=== PATIENT | female | born 1990 | race Caucasian/White ===

== ENCOUNTER 2017-10-14 17:22 | Emergency (ER) | payer BC ==
[~2017-10-14] VITALS: Ht 162.6 cm; Wt 59.0 kg
[~2017-10-14 17:22] MED LIST: BOOSTRIX IM; FLUZONE SPLT1 M1 IM; TET/DIP TOX1 ML IM; VITA-NATAL PO
[2017-10-14] MEDS ORDERED: AUGMENTIN875TAB PO (17:31)
[2017-10-14] MEDS ORDERED: FLONASE AL50 MCG/ACT (18:01)
[2017-10-14 18:20] LABS: HEMATOCRIT 37.2 % (37.0-47.0); HEMOGLOBIN 13.1 g/dl (12.0-16.0); IMMATURE GRANULOCYTES 0.1 % (0.0-1.0); MEAN CELL VOLUME 89.6 fL CALC (80.0-100.0); MEAN CORPUSCULAR HGB 31.6 pG CALC (26.0-32.0); MEAN CORPUSCULAR HGB CONC 35.2 g/L CALC (32.0-36.0); NEUT# 5.01 thou/uL (2.00-7.15); RED BLOOD COUNT 4.15 mill/uL (4.20-5.60); RED CELL DISTRI WIDTH 11.4 % (11.5-15.5)
[2017-10-14 18:24] LABS: URINE BILIRUBIN - DIPSTICK NEGATIVE (NEGATIVE); URINE BLOOD DIPSTICK NEGATIVE (NEGATIVE); URINE COLOR YELLOW; URINE GLUCOSE - DIPSTICK NEGATIVE (NEGATIVE); URINE KETONE 15 mg/dL (NEGATIVE); URINE LEUK ESTERASE NEGATIVE (NEGATIVE); URINE NITRITE - DIPSTICK NEGATIVE (Negative); URINE PH 6.5 (4.5-8.0); URINE PROTEIN - DIPSTICK NEGATIVE (NEG-TRACE); URINE SPECIFIC GRAVITY <=1.005; URINE UROBILINOGEN - DIPSTICK 0.2 E.U./dL (0.2)
[2017-10-14 18:32] LABS: ALBUMIN 4.7 g/dL (3.2-5.0); ALKALINE PHOSPHATASE 112 u/l (38-126); ANION GAP 18 (6-22 (CALC)); BILIRUBIN, TOTAL 0.6 mg/dL (0.0-1.4); BUN 7 mg/dL (7-17); BUN/CREATININE RATIO 15 (12-20 (CALC)); CALCIUM 9.8 mg/dL (8.4-10.2); CARBON DIOXIDE 22 mmol/l (22-30); CHLORIDE 104 mmol/l (95-108); CREATININE 0.5 mg/dL (0.5-1.0); GFR > 60 ML/MIN (>=60 (CALC)); GFR FOR AFR.AMER. > 60 ML/MIN (>=60 (CALC)); GLUCOSE 93 mg/dL (65-105); SGOT/AST 45 u/l (14-36); SGPT/ALT 64 u/l (9-52); SODIUM 139 mmol/l (137-146); TOTAL PROTEIN 7.7 g/dL (6.3-8.2)
[2017-10-14 19:11] LABS: URINE CLARITY CLEAR
[2017-10-14 19:25] VITALS: BP 119/77
== END 2017-10-14 19:25 | disposition home or self-care (01) | DRG 781 ==
LOC: ED 17:22
PROVIDERS: Emergency Medicine
DX: O26.891 Other specified pregnancy related conditions, first trimester (principal); H72.91 Unspecified perforation of tympanic membrane, right ear; J32.0 Chronic maxillary sinusitis; Z3A.01 Less than 8 weeks gestation of pregnancy; R51 Headache

== ENCOUNTER → 2019-01-21 | Outpatient (REF) ==
[~2019-01-21] MED LIST changes: +AUGMENTIN875TAB PO; +FLONASE AL50 MCG/ACT
== END | disposition home or self-care (01) | DRG 951 ==
LOC: LAB 07:31
PROVIDERS: ATTEND Obstetrics & Gynecology
DX: Z34.92 Encounter for supervision of normal pregnancy, unspecified, second trimester (principal)

== ENCOUNTER 2019-05-11 15:46 | Emergency (ER) | payer BC ==
[~2019-05-11] VITALS: Ht 162.6 cm; Wt 63.2 kg
[2019-05-11 17:14] LABS: URINE BILIRUBIN - DIPSTICK NEGATIVE (NEGATIVE); URINE BLOOD DIPSTICK NEGATIVE (NEGATIVE); URINE COLOR YELLOW; URINE GLUCOSE - DIPSTICK NEGATIVE (NEGATIVE); URINE KETONE NEGATIVE (NEGATIVE); URINE LEUK ESTERASE TRACE (NEGATIVE); URINE NITRITE - DIPSTICK NEGATIVE (Negative); URINE PH 5.5 (4.5-8.0); URINE PROTEIN - DIPSTICK NEGATIVE (NEG-TRACE); URINE SPECIFIC GRAVITY <=1.005; URINE UROBILINOGEN - DIPSTICK 0.2 E.U./dL (0.2)
[2019-05-11 17:17] LABS: HEMATOCRIT 40.5 % (37.0-47.0); HEMOGLOBIN 13.4 g/dl (12.0-16.0); IMMATURE GRANULOCYTES 0.3 % (0.0-5.0); MEAN CELL VOLUME 92.5 fL CALC (80.0-100.0); MEAN CORPUSCULAR HGB 30.6 pG CALC (26.0-32.0); MEAN CORPUSCULAR HGB CONC 33.1 g/L CALC (32.0-36.0); NEUT# 4.41 thou/uL (2.00-7.15); RED BLOOD COUNT 4.38 mill/uL (4.20-5.60); RED CELL DISTRI WIDTH 12.4 % (11.5-15.5)
[2019-05-11 17:28] LABS: ALBUMIN 4.6 g/dL (3.2-5.0); ALKALINE PHOSPHATASE 128 u/l (38-126); ANION GAP 14 (6-22 (CALC)); BILIRUBIN, TOTAL 0.6 mg/dL (0.0-1.4); BUN 13 mg/dL (7-17); BUN/CREATININE RATIO 15 (12-20 (CALC)); CARBON DIOXIDE 26 mmol/l (22-30); CHLORIDE 103 mmol/l (95-108); CREATININE 0.9 mg/dL (0.5-1.0); GFR > 60 ML/MIN (>=60 (CALC)); GFR FOR AFR.AMER. > 60 ML/MIN (>=60 (CALC)); POTASSIUM 3.9 mmol/l (3.5-5.1); SGOT/AST 38 u/l (14-36); SODIUM 138 mmol/l (137-146); TOTAL PROTEIN 7.5 g/dL (6.3-8.2)
[2019-05-11] MEDS ORDERED: TAMSULOSIN0.4 MG PO (19:58)
[2019-05-11] MEDS ORDERED: PERCOCET 5/325M1 TAB PO (19:58)
[2019-05-11] MEDS ORDERED: ZOFRAN4 MG/TAB PO (19:58)
[2019-05-11 20:19] VITALS: BP 131/83
== END 2019-05-11 20:19 | disposition home or self-care (01) | DRG 694 ==
LOC: ED 15:46
DX: N20.0 Calculus of kidney (principal)

== ENCOUNTER 2019-05-12 16:38 | Observation (INO) | payer BC ==
[~2019-05-12] VITALS: Ht 162.6 cm; Wt 65.0 kg
[~2019-05-12 16:38] MED LIST changes: +PERCOCET 5/325M1 TAB PO; +TAMSULOSIN0.4 MG PO; +ZOFRAN4 MG/TAB PO
--- NOTE | 2019-05-12 16:44 | NUR ---
PATIENT AMBULATES TO ROOM WITH STEADY GAIT
--- NOTE | 2019-05-12 17:25 | NUR ---
SREEDHAR PATEL AT BEDSIDE TO ATTEMPT AND PLACE IV SITE WITH ASSISTANCE FROM ULTRASOUND.
--- NOTE | 2019-05-12 18:00 | NUR ---
UNABLE TO ESTABLISH IV SITE AFTER FOUR DIFFERENT ED STAFF ATTEMPT.
[2019-05-12 18:10] LABS: HEMATOCRIT 36.1 % (37.0-47.0); HEMOGLOBIN 11.6 g/dl (12.0-16.0); IMMATURE GRANULOCYTES 0.4 % (0.0-5.0); MEAN CORPUSCULAR HGB 30.2 pG CALC (26.0-32.0); MEAN CORPUSCULAR HGB CONC 32.1 g/L CALC (32.0-36.0); NEUT# 5.92 thou/uL (2.00-7.15); RED BLOOD COUNT 3.84 mill/uL (4.20-5.60); RED CELL DISTRI WIDTH 12.7 % (11.5-15.5)
[2019-05-12 18:11] LABS: URINE BILIRUBIN - DIPSTICK NEGATIVE (NEGATIVE); URINE BLOOD DIPSTICK SMALL (NEGATIVE); URINE COLOR YELLOW; URINE GLUCOSE - DIPSTICK NEGATIVE (NEGATIVE); URINE KETONE NEGATIVE (NEGATIVE); URINE LEUK ESTERASE TRACE (NEGATIVE); URINE NITRITE - DIPSTICK NEGATIVE (Negative); URINE PROTEIN - DIPSTICK NEGATIVE (NEG-TRACE); URINE SPECIFIC GRAVITY 1.015; URINE UROBILINOGEN - DIPSTICK 0.2 E.U./dL (0.2)
--- NOTE | 2019-05-12 18:11 | NUR ---
TRACEE CASTAÑEDA AT BEDSIDE TO ATTEMPT IV SITE.
--- NOTE | 2019-05-12 18:25 | NUR ---
ICE PACKS APPLIED UNDER BILATERAL AXILLA. FOR FEVER 101.9
[2019-05-12 18:33] LABS: ALKALINE PHOSPHATASE 103 u/l (38-126); ANION GAP 13 (6-22 (CALC)); BILIRUBIN, TOTAL 0.8 mg/dL (0.0-1.4); BUN 9 mg/dL (7-17); BUN/CREATININE RATIO 16 (12-20 (CALC)); CARBON DIOXIDE 25 mmol/l (22-30); CHLORIDE 102 mmol/l (95-108); CREATININE 0.6 mg/dL (0.5-1.0); GFR > 60 ML/MIN (>=60 (CALC)); GFR FOR AFR.AMER. > 60 ML/MIN (>=60 (CALC)); POTASSIUM 4.1 mmol/l (3.5-5.1); SGOT/AST 33 u/l (14-36); SODIUM 136 mmol/l (137-146); TOTAL PROTEIN 6.6 g/dL (6.3-8.2)
[2019-05-12 18:36] LABS: URINE SQUAMOUS EPITHELIAL CELL FEW EPI/hpf (0-FEW); URINE WBC 0-2 WBC/hpf (0-5)
--- NOTE | 2019-05-12 18:45 | NUR ---
BEDSIDE REPORT GIVEN TO SREEDHAR PAYAN. INFORMED OF IV MEDICATIONS ORDERED.
--- NOTE | 2019-05-12 18:54 | NUR ---
IVF AND IV ABT. STARTED PER MD ORDER.
--- NOTE | 2019-05-12 18:59 | NUR ---
PT. MADE AWARE OF IMPENDING ADMISSION, VERBALIZED UNDERSTANDING.
--- NOTE | 2019-05-12 19:59 | NUR ---
AMBULATING TO BR GAIT SLOW AND STEADY, NO C/O AT THIS TIME.
--- NOTE | 2019-05-12 20:15 | NUR ---
Admission Note Report Given to: LEO ELI Transported by: Wheelchair X Stretcher Transported with: X Nurse Transporter X Patent IV [employer] Manager [employer]
[2019-05-12 20:20] VITALS: BP 128/66
--- NOTE | 2019-05-12 20:20 | NUR ---
PT. TAKEN TO [facility] FLOOR VIA W/C NO C\O.
--- NOTE | 2019-05-12 20:20 | NUR ---
PATIENT ARRIVED VIA WHEELCHAIR FROM ER, REPORT GIVEN BY ROSHAN ELI.PATIENT ALERT AND ORIENTED. ORIENTED TO ROOM, CALL LIGHT,AND BED. ASSESSMENT COMPLETED AT THIS TIME. RIGHT FLANK PAIN PRESENT 2/, PATIENT STATES THAT TORADOL HAS WORKED WELL. FALL PRECAUTIONS IN PLACE. PATIENT INFORMED TO CALL WITH ANY QUESTIONS OR CONCERNS. PLAN OF CARE REIVEWED. ARRIVED IN ROOM AT 2019.
--- NOTE | 2019-05-12 21:10 | NUR ---
SPOKE WITH MD, NEW ORDERS GIVEN AT THIS TIME.
[2019-05-13] VITALS (12 sets, daily range): BP systolic 105–133; BP diastolic 66–86
--- NOTE | 2019-05-13 00:30 | NUR ---
PATIENT TOOK A SHOWER
--- NOTE | 2019-05-13 03:55 | NUR ---
PATIENT RESTING WITH EYES CLOSED. NO S/S OF DISTRESS NOTED. RESP EVEN AND UNLABORED.
--- NOTE | 2019-05-13 05:45 | NUR ---
PATIENT TAKEN TO PRE-OP
--- NOTE | 2019-05-13 07:56 | NUR ---
RETURNED FROM OR VIA STRETCHER BY [facility]MA STAFF AND AMBULATED TO BR BEDSIDE REPORT RECEIVED FROM CADEN. PT ALERT AND ORIENTED X 4, C/O DISCOMFORT TO PUBIC AREA AND DESCRIBED IT MILD PAIN, SETTLED IN BED AND SET UP FOR VITAL SIGNS, IVF INFUSING TO SITE IN . OR STAFF REPORTS EBL OF 5 AND 600 ML IN, PROCUDURE CYSTOSCOPY WITH URETEROSCOPY AND RIGHT STENT PLACEMENT DONE BY DR CABALLERO. CALL VERMA IN REACH, WILL CONTINUE TO MONITOR.
--- NOTE | 2019-05-13 11:47 | NUR ---
RESTING IN BED, UP AND AMBULATED TO BR AT [facility] BUT ADVISED TO CALL FOR ASSIST NEEDED, WILL CONTINUE TO MONITOR.
[2019-05-13 13:50] LABS: URINE BILIRUBIN - DIPSTICK NEGATIVE (NEGATIVE); URINE BLOOD DIPSTICK LARGE (NEGATIVE); URINE GLUCOSE - DIPSTICK NEGATIVE (NEGATIVE); URINE KETONE NEGATIVE (NEGATIVE); URINE LEUK ESTERASE SMALL (Negative); URINE NITRITE - DIPSTICK NEGATIVE (Negative); URINE PROTEIN - DIPSTICK 30 mg/dL (NEG-TRACE); URINE UROBILINOGEN - DIPSTICK 0.2 E.U./dL (0.2)
[2019-05-13 13:51] LABS: URINE CLARITY CLOUDY; URINE COLOR DK. YELLOW
[2019-05-13 13:52] LABS: URINE EPITHELIAL CELLS FEW EPI/hpf (0-FEW); URINE RBC 25-50 RBC/hpf (0-5); URINE WBC 0-2 WBC/hpf (0-5)
--- NOTE | 2019-05-13 16:00 | NUR ---
RESTING IN BED, C/O PELVIC PAIN AND REQUESTING MEDS, CONCERN ADDRESSED, WILL CONTINUE TO MONITOR. URINE CLEARING FROM RICH[place]DS[place] RED THIS AM TO LIGHT PINK AT THIS TIME.
--- NOTE | 2019-05-13 20:05 | NUR ---
PT RESTING IN BED, NO SIGNS OF DISTRESS NOTED, RESP EVEN AND UNLABORED. PT ALERT AND ORIENTED X3, DISCUSSED POC. PT HAS A TEMP AT THIS TIME. WILL MEDICATE WITH TYLENOL, PAIN IS MILD 3/10 AT THIS TIME. DISCUSSED TORADOL AND ZOSYN SCHEDULE TIMES. ASSESSMENT COMPLETED AT THIS TIME. CALL LIGHT IN REACH,CONTINUE TO MONITOR.
--- NOTE | 2019-05-13 20:39 | NUR ---
ORDER RECEIVED FOR TYLENOL PT MEDICATED PER JAN.
--- NOTE | 2019-05-13 22:25 | NUR ---
PT RESTING IN BED WITH EYES CLOSED, RESP EVEN AND UNLABORED. CALL LIGHT IN REACH,CONTINUE TO MONITOR.
--- NOTE | 2019-05-14 00:04 | NUR ---
PT RESTING IN BED, INITIATED IV ZOSYN, PT VOICES NO NEEDS OR COMPLAINTS AT THIS TIME. CALL LIGHT IN REACH,CONTINUE TO MONITOR.
[2019-05-14 00:47] VITALS: BP 128/80
[2019-05-14 04:33] VITALS: BP 132/93
[2019-05-14 05:50] LABS: HEMATOCRIT 32.9 % (37.0-47.0); HEMOGLOBIN 10.7 g/dl (12.0-16.0); IMMATURE GRANULOCYTES 0.7 % (0.0-5.0); MEAN CORPUSCULAR HGB 30.6 pG CALC (26.0-32.0); MEAN CORPUSCULAR HGB CONC 32.5 g/L CALC (32.0-36.0); NEUT# 2.77 thou/uL (2.00-7.15); RED BLOOD COUNT 3.5 mill/uL (4.20-5.60); RED CELL DISTRI WIDTH 12.8 % (11.5-15.5)
[2019-05-14 06:11] LABS: ALKALINE PHOSPHATASE 84 u/l (38-126); ANION GAP 6 (6-22 (CALC)); BILIRUBIN, TOTAL 0.5 mg/dL (0.0-1.4); BUN 3 mg/dL (7-17); BUN/CREATININE RATIO 6 (12-20 (CALC)); CARBON DIOXIDE 26 mmol/l (22-30); CHLORIDE 111 mmol/l (95-108); CREATININE 0.6 mg/dL (0.5-1.0); GFR > 60 ML/MIN (>=60 (CALC)); GFR FOR AFR.AMER. > 60 ML/MIN (>=60 (CALC)); MAGNESIUM 1.6 mg/dL (1.6-2.3); POTASSIUM 3.7 mmol/l (3.5-5.1); SGOT/AST 22 u/l (14-36); SODIUM 139 mmol/l (137-146); TOTAL PROTEIN 5.4 g/dL (6.3-8.2)
[2019-05-14 06:32] LABS: ALBUMIN 2.9 g/dL (3.2-5.0)
--- NOTE | 2019-05-14 07:00 | NUR ---
SHIFT CHANGE REPORT, PT AWAKE ALERT AND ORIENTED AMBULATING TO BR, C/O PERIODIC LOWER ABD PAIN AGGRAVATED BY URINATION, ANXIOUS TO GO HOME TODAY, ALL NEEDS ADDRESSED, CALL VERMA IN REACH.
[2019-05-14 07:36] VITALS: BP 136/96
[2019-05-14] MEDS ORDERED: TAMSULOSIN0.4 MG PO (13:36)
[2019-05-14] MEDS ORDERED: KEFLEX500 MG PO (13:37)
--- NOTE | 2019-05-14 14:45 | NUR ---
Discharge instructions given. Patient verbalizes understanding of same. Discharged in stable condition via Wheelchair to Home with *Other. All belongings sent with pt.
[2019-05-14 14:55] LABS: URINE BILIRUBIN - DIPSTICK NEGATIVE (NEGATIVE); URINE BLOOD DIPSTICK LARGE (NEGATIVE); URINE COLOR YELLOW; URINE GLUCOSE - DIPSTICK NEGATIVE (NEGATIVE); URINE KETONE NEGATIVE (NEGATIVE); URINE LEUK ESTERASE NEGATIVE (Negative); URINE NITRITE - DIPSTICK NEGATIVE (Negative); URINE PH 7.5 (4.5-8.0); URINE PROTEIN - DIPSTICK TRACE mg/dL (NEG-TRACE); URINE UROBILINOGEN - DIPSTICK 0.2 E.U./dL (0.2)
[2019-05-14 15:06] LABS: URINE CLARITY CLEAR
[2019-05-14 15:09] LABS: URINE WBC 0-2 WBC/hpf (0-5)
--- NOTE | 2019-05-14 15:12 | NUR ---
PT REQUESTED URINE CULTURE BASED ON INFORMATION UROGOLIST GAVE HER, SPECIMEN COLLECTED AND SENT AND RESULT TO BE SENT TO PT FOR CONTINUATION OF CARE.
== END 2019-05-14 14:40 | disposition home or self-care (01) | DRG 661 ==
LOC: ED 16:38 → ED-I 18:50 → ED 19:12 → MS2 19:13
PROVIDERS: Internal Medicine Nephrology; ADMIT Internal Medicine; ATTEND Internal Medicine
PROC: 0T768DZ Dilation of Right Ureter with Intraluminal Device, Via Natural or Artificial Opening Endoscopic (ICD-10-PCS; principal; 2019-05-13)
PROC: BT1D1ZZ Fluoroscopy of Right Kidney, Ureter and Bladder using Low Osmolar Contrast (ICD-10-PCS; 2019-05-13)
DX: N13.6 Pyonephrosis (principal); Z84.1 Family history of disorders of kidney and ureter
CPT/HCPCS: C1769; G0378; J0131; Q9967

== ENCOUNTER 2019-06-05 16:56 | Day surgery (SDC) | payer BC ==
[~2019-06-05] VITALS: Ht 162.6 cm; Wt 63.5 kg
[~2019-06-05 16:56] MED LIST changes: +KEFLEX500 MG PO
[2019-06-05] MEDS ORDERED: ZOFRAN4 MG/TAB PO (17:35)
[2019-06-05] MEDS ORDERED: PERCOCET 5/325M1 TAB PO (17:37)
[2019-06-05] MEDS ORDERED: NORCO1 TA1 PO (20:57)
[2019-06-05] MEDS ORDERED: DITROPAN5 MG/TA1 PO (20:57)
[2019-06-05] MEDS ORDERED: PYRIDIUM200 MG PO (20:57)
[2019-06-05] MEDS ORDERED: BACTRIM DS1 TAB PO (20:57)
[2019-06-05 21:12] VITALS: BP 131/85
== END 2019-06-05 21:25 | disposition home or self-care (01) | DRG 661 ==
LOC: ORM 16:56
PROVIDERS: ATTEND Urology
PROC: 0TC68ZZ Extirpation of Matter from Right Ureter, Via Natural or Artificial Opening Endoscopic (ICD-10-PCS; principal; 2019-06-05)
PROC: 0T768DZ Dilation of Right Ureter with Intraluminal Device, Via Natural or Artificial Opening Endoscopic (ICD-10-PCS; 2019-06-05)
PROC: 0TP98DZ Removal of Intraluminal Device from Ureter, Via Natural or Artificial Opening Endoscopic (ICD-10-PCS; 2019-06-05)
PROC: BT1DZZZ Fluoroscopy of Right Kidney, Ureter and Bladder (ICD-10-PCS; 2019-06-05)
DX: N13.2 Hydronephrosis with renal and ureteral calculous obstruction (principal); N20.0 Calculus of kidney; Z84.2 Family history of other diseases of the genitourinary system
CPT/HCPCS: J0131

== ENCOUNTER 2020-03-19 | Emergency (ER) | payer OTHER ==
[~2020-03-19] MED LIST changes: +BACTRIM DS1 TAB PO; +DITROPAN5 MG/TA1 PO; +NORCO1 TA1 PO; +PYRIDIUM200 MG PO
[2020-03-19 13:21] LABS: URINE BILIRUBIN - DIPSTICK NEGATIVE (NEGATIVE); URINE BLOOD DIPSTICK NEGATIVE (NEGATIVE); URINE COLOR YELLOW; URINE GLUCOSE - DIPSTICK NEGATIVE (NEGATIVE); URINE KETONE NEGATIVE (NEGATIVE); URINE LEUK ESTERASE NEGATIVE (NEGATIVE); URINE NITRITE - DIPSTICK NEGATIVE (Negative); URINE PROTEIN - DIPSTICK NEGATIVE (NEG-TRACE); URINE UROBILINOGEN - DIPSTICK 0.2 E.U./dL (0.2)
[2020-03-19 13:27] LABS: HEMATOCRIT 41.2 % (37.0-47.0); HEMOGLOBIN 13.9 g/dl (12.0-16.0); IMMATURE GRANULOCYTES 0.4 % (0.0-5.0); MEAN CELL VOLUME 89.4 fL CALC (80.0-100.0); MEAN CORPUSCULAR HGB 30.2 pG CALC (26.0-32.0); MEAN CORPUSCULAR HGB CONC 33.7 g/dL CAL (32.0-36.0); NEUT# 5.4 thou/uL (2.00-7.15); RED BLOOD COUNT 4.61 mill/uL (4.20-5.60); RED CELL DISTRI WIDTH 12.1 % (11.5-15.5)
[2020-03-19 13:44] LABS: ALBUMIN 4.7 g/dL (3.2-5.0); ALKALINE PHOSPHATASE 65 u/l (38-126); ANION GAP 13 (6-22 (CALC)); BILIRUBIN, TOTAL 0.6 mg/dL (0.0-1.4); BUN 13 mg/dL (7-17); BUN/CREATININE RATIO 19 (12-20 (CALC)); CARBON DIOXIDE 28 mmol/l (22-30); CHLORIDE 100 mmol/l (95-108); CREATININE 0.7 mg/dL (0.5-1.0); GFR > 60 ML/MIN (>=60 (CALC)); GFR FOR AFR.AMER. > 60 ML/MIN (>=60 (CALC)); LIPASE 57 u/l (23-300); SGOT/AST 29 u/l (14-36); SODIUM 137 mmol/l (137-146); TOTAL PROTEIN 7.9 g/dL (6.3-8.2)
[2020-03-19] MEDS ORDERED: HYDROCO/APAP1 TA9 PO (15:31)
[2020-03-19] MEDS ORDERED: ONDANSETRON4 MG PO (15:31)
== END 2020-03-19 15:44 | disposition home or self-care (01) | DRG 392 ==
DX: R10.9 Unspecified abdominal pain (principal); N20.0 Calculus of kidney; I10 Essential (primary) hypertension; Z87.442 Personal history of urinary calculi